=== PATIENT | male | born 1940 | race African-American/Black ===

== ENCOUNTER 2021-02-15 15:14 | Outpatient (CLI) | payer MEDICARE ==
[2021-02-15 19:37] LABS: SARS-CoV-2 PCR by NAA Not Detected (NotDetected)
== END 2021-02-15 15:15 | disposition home or self-care (01) ==
LOC: BRENFP 15:14
PROVIDERS: ATTEND Registered Nurse
DX: R52 Pain, unspecified (principal); Z20.822 Contact with and (suspected) exposure to COVID-19
CPT/HCPCS: U0003; U0005

== ENCOUNTER 2022-03-14 16:14 | Inpatient (IN) | payer MEDICARE ==
[2022-03-14 16:33] VITALS: BMI 31.8
[2022-03-14] MEDS ORDERED: Benzonatate 100 MG CAP PO PRN (19:30)
[2022-03-14] MEDS ORDERED: Albuterol 200 PUFF (6.7GM INHALER) INH PRN (19:30)
[2022-03-14] MEDS ORDERED: Acetaminophen 325 MG TAB PO PRN (19:30)
[2022-03-14] MEDS ORDERED: Acetaminophen 650 MG Suppository PR PRN (19:30)
[2022-03-14] MEDS ORDERED: Dextrose 50% Abboject 50 ML SYRINGE SLOW IVP PRN (19:58)
[2022-03-14] MEDS ORDERED: Dextrose 5% in Water 1,000 ML IV PRN (19:58)
[2022-03-14] MEDS ORDERED: HumaLOG 300 UNITS/3 ML VIAL SC PRN ×2 (19:58)
[2022-03-14] MEDS ORDERED: Furosemide 40 MG/4 ML VIAL SLOW IVP SCH (20:00)
[2022-03-14] MEDS ORDERED: hydrALAZINE 20 MG/ML VIAL SLOW IVP PRN (20:00)
[2022-03-14] MEDS ORDERED: Ondansetron PF 4 MG/2 ML Vial IVP PRN (20:24)
[2022-03-14] MEDS ORDERED: REMDESIVIR 200 MG in Sodium Chloride 0.9% 250 ML 210 ML IV SCH (21:00)
[2022-03-14] MEDS: Latanoprost 0.005% Ophth Soln 2.5 ml Bottle EA EYE SCH (21:21)
[2022-03-14] MEDS: DorzolamidE/Timolol 2%/0.5% Ophth Soln 10 ml Bottle EA EYE SCH (21:21)
[2022-03-14] MEDS: Atorvastatin Calcium 40 MG TAB PO SCH (21:21)
[2022-03-14] MEDS: Carvedilol 3.125 MG TAB PO SCH (21:21)
[2022-03-14] MEDS: Heparin 5,000 UNITS/ML VIAL SC SCH (21:22)
[2022-03-14 21:27] LABS: Troponin I 0.115 ng/mL (< 0.028)
[2022-03-15 00:32] LABS: Troponin I 0.126 ng/mL (< 0.028)
[2022-03-15 01:30] LABS: Magnesium 1.8 mg/dL (1.6-2.6)
[2022-03-15 04:47] LABS: Hemoglobin A1c 5.5 % (4.0-6.0)
[2022-03-15 04:56] LABS: PTT 35.9 sec (22.9-36.1)
[2022-03-15 04:57] LABS: D-Dimer Test 1.19 *mcg/mL (0.27-0.43); INR-International Normal Ratio 1.3; Prothrombin Time 15.9 sec (12.0-14.7)
[2022-03-15 05:02] LABS: ALT (SGPT) 32 U/L (8-55); AST (SGOT) 43 U/L (5-34); Alkaline Phosphatase 60 U/L (40-110); Bilirubin, Direct 0.4 mg/dL (0.1-0.3); Bilirubin, Total 1.2 mg/dL (0.2-1.2); CRP (Inflammatory) 1.49 mg/dL (= or < 0.5); Protein, Total 5.7 g/dL (5.8-8.1)
[2022-03-15 05:06] LABS: ALT (SGPT) 28 U/L (8-55); AST (SGOT) 44 U/L (5-34); Albumin 2.9 g/dL (3.4-4.8); Alkaline Phosphatase 57 U/L (40-110); Anion Gap 15 mmol/L (10-20); BUN (Urea Nitrogen) 19 mg/dL (8.4-25.7); Bilirubin, Total 1.1 mg/dL (0.2-1.2); Calc. Creatinine Clearance 63 mL/min (70-130); Calcium 8.3 mg/dL (7.8-10.44); Carbon Dioxide 23 mmol/L (23-31); Cardiac Risk 3.6 (Less than 4.5); Chloride 104 mmol/L (98-107); Cholesterol 114 mg/dl (< 200 Desired); Estimated GFR 62; Globulin 2.7 g/dL (2.4-3.5); Glucose 131 mg/dL (83-110); HDL Cholesterol 32 mg/dL (>60 Neg Risk); LDL Cholesterol, Calculated 76 mg/dL; Potassium 3.6 mmol/L (3.5-5.1); Protein, Total 5.6 g/dL (5.8-8.1); Sodium 138 mmol/L (136-145); Triglycerides 30 mg/dL (Less than 150)
[2022-03-15] MEDS: Furosemide 40 MG/4 ML VIAL SLOW IVP SCH ×2 (06:03→18:10)
[2022-03-15] MEDS ORDERED: Pioglitazone HCl 15 MG TAB PO SCH (09:00)
[2022-03-15] MEDS: Potassium Chloride 20 MEQ TAB PO SCH (09:19)
[2022-03-15] MEDS: Clopidogrel Bisulfate 75 MG TAB PO SCH (09:20)
[2022-03-15] MEDS: Zinc Sulfate 220 MG CAP PO SCH (09:20)
[2022-03-15] MEDS: Ascorbic Acid 500 mg Chewable Tablet PO SCH (09:20)
[2022-03-15] MEDS: Cholecalciferol (Vitamin D3) 400 UNITS TAB PO SCH (09:21)
[2022-03-15] MEDS: Dexamethasone 4 MG TAB PO SCH (09:21)
[2022-03-15] MEDS: Lisinopril 20 MG TAB PO SCH (09:21)
[2022-03-15] MEDS: Amlodipine 5 MG TAB PO SCH (09:22)
[2022-03-15] MEDS: Carvedilol 3.125 MG TAB PO SCH ×2 (09:22→21:15)
[2022-03-15] MEDS: Heparin 5,000 UNITS/ML VIAL SC SCH ×3 (09:23→21:16)
[2022-03-15] MEDS: DorzolamidE/Timolol 2%/0.5% Ophth Soln 10 ml Bottle EA EYE SCH ×2 (09:23→21:16)
[2022-03-15] MEDS: Atorvastatin Calcium 40 MG TAB PO SCH (21:15)
[2022-03-15] MEDS: REMDESIVIR 100 MG in Sodium Chloride 0.9% 250 ML 230 ML IV SCH (21:16)
[2022-03-15] MEDS: Latanoprost 0.005% Ophth Soln 2.5 ml Bottle EA EYE SCH (21:16)
[2022-03-16 04:56] LABS: #Lymphocytes 1.5 thou/uL (1.20-3.40); #Monocytes 0.9 thou/uL (0.11-0.59); #Neutrophils 6.1 thou/uL (1.40-6.50); %Basophils 0.2 % (0.0-1.0); %Lymphocytes 17.8 % (21.0-51.0); %Monocytes 10.5 % (0.0-10.0); %Neutrophils 71.5 % (42.0-75.0); Hemoglobin 13.2 g/dL (14.0-18.0); Mean Corpuscular HGB CONC 33.5 g/dL (32.0-36.0); Mean Corpuscular Hemoglobin 31.9 pg (27.0-31.0); Mean Corpuscular Volume 95.4 fL (78.0-98.0); Platelet Count 136 thou/uL (130-400); RBC Distribution Width 13.8 % (11.5-14.5); Red Blood Cell (RBC) Count 4.13 mill/uL (4.70-6.10); White Blood Cell (WBC) Count 8.6 thou/uL (4.8-10.8)
[2022-03-16 05:18] LABS: ALT (SGPT) 41 U/L (8-55); AST (SGOT) 56 U/L (5-34); Alkaline Phosphatase 62 U/L (40-110); Anion Gap 14 mmol/L (10-20); BUN (Urea Nitrogen) 24 mg/dL (8.4-25.7); Calc. Creatinine Clearance 57 mL/min (70-130); Calcium 8.5 mg/dL (7.8-10.44); Carbon Dioxide 26 mmol/L (23-31); Chloride 104 mmol/L (98-107); Estimated GFR 57; Globulin 2.8 g/dL (2.4-3.5); Glucose 123 mg/dL (83-110); Potassium 3.7 mmol/L (3.5-5.1); Protein, Total 5.8 g/dL (5.8-8.1); Sodium 140 mmol/L (136-145)
[2022-03-16] MEDS: Furosemide 40 MG/4 ML VIAL SLOW IVP SCH ×2 (05:47→14:06)
[2022-03-16] MEDS: Dexamethasone 4 MG TAB PO SCH (09:51)
[2022-03-16] MEDS: Cholecalciferol (Vitamin D3) 400 UNITS TAB PO SCH (09:53)
[2022-03-16] MEDS: Amlodipine 5 MG TAB PO SCH (09:53)
[2022-03-16] MEDS: Lisinopril 20 MG TAB PO SCH (09:53)
[2022-03-16] MEDS: Zinc Sulfate 220 MG CAP PO SCH (09:54)
[2022-03-16] MEDS: DorzolamidE/Timolol 2%/0.5% Ophth Soln 10 ml Bottle EA EYE SCH ×2 (09:54→21:05)
[2022-03-16] MEDS: Potassium Chloride 20 MEQ TAB PO SCH (09:54)
[2022-03-16] MEDS: Carvedilol 3.125 MG TAB PO SCH ×2 (09:54→21:05)
[2022-03-16] MEDS: Clopidogrel Bisulfate 75 MG TAB PO SCH (09:54)
[2022-03-16] MEDS: Ascorbic Acid 500 mg Chewable Tablet PO SCH (09:54)
[2022-03-16] MEDS: Heparin 5,000 UNITS/ML VIAL SC SCH ×3 (09:55→21:06)
[2022-03-16] MEDS: Atorvastatin Calcium 40 MG TAB PO SCH (21:05)
[2022-03-16] MEDS: Latanoprost 0.005% Ophth Soln 2.5 ml Bottle EA EYE SCH (21:06)
[2022-03-16] MEDS: REMDESIVIR 100 MG in Sodium Chloride 0.9% 250 ML 230 ML IV SCH (21:06)
[2022-03-17 03:32] VITALS: TEMP 97.5
[2022-03-17 04:22] LABS: #Lymphocytes 1.5 thou/uL (1.20-3.40); #Monocytes 0.8 thou/uL (0.11-0.59); #Neutrophils 5.9 thou/uL (1.40-6.50); %Eosinophils 0.1 % (0.0-10.0); %Lymphocytes 18.6 % (21.0-51.0); %Monocytes 9.8 % (0.0-10.0); %Neutrophils 71.5 % (42.0-75.0); Hemoglobin 13.7 g/dL (14.0-18.0); Mean Corpuscular HGB CONC 32.8 g/dL (32.0-36.0); Mean Corpuscular Hemoglobin 31.5 pg (27.0-31.0); Mean Corpuscular Volume 95.9 fL (78.0-98.0); Mean Platelet Volume 9.7 fL (7.4-10.4); Platelet Count 134 thou/uL (130-400); RBC Distribution Width 13.9 % (11.5-14.5); Red Blood Cell (RBC) Count 4.36 mill/uL (4.70-6.10); White Blood Cell (WBC) Count 8.2 thou/uL (4.8-10.8)
[2022-03-17 04:46] LABS: Anion Gap 15 mmol/L (10-20); BUN (Urea Nitrogen) 26 mg/dL (8.4-25.7); Calc. Creatinine Clearance 55 mL/min (70-130); Calcium 8.2 mg/dL (7.8-10.44); Carbon Dioxide 26 mmol/L (23-31); Chloride 103 mmol/L (98-107); Estimated GFR 57; Glucose 122 mg/dL (83-110); Potassium 3.6 mmol/L (3.5-5.1); Sodium 140 mmol/L (136-145)
[2022-03-17] MEDS: Furosemide 40 MG/4 ML VIAL SLOW IVP SCH (05:17)
[2022-03-17] MEDS ORDERED: Multivit, Therapeutic 1 TAB PO SCH (09:00)
[2022-03-17] MEDS: Clopidogrel Bisulfate 75 MG TAB PO SCH (09:05)
[2022-03-17] MEDS: Ascorbic Acid 500 mg Chewable Tablet PO SCH (09:05)
[2022-03-17] MEDS: DorzolamidE/Timolol 2%/0.5% Ophth Soln 10 ml Bottle EA EYE SCH (09:05)
[2022-03-17] MEDS: Dexamethasone 4 MG TAB PO SCH (09:05)
[2022-03-17] MEDS: Potassium Chloride 20 MEQ TAB PO SCH (09:06)
[2022-03-17] MEDS: Zinc Sulfate 220 MG CAP PO SCH (09:06)
[2022-03-17] MEDS: Amlodipine 5 MG TAB PO SCH (09:06)
[2022-03-17] MEDS: Heparin 5,000 UNITS/ML VIAL SC SCH (09:06)
[2022-03-17] MEDS: Cholecalciferol (Vitamin D3) 400 UNITS TAB PO SCH (09:06)
[2022-03-17] MEDS: Lisinopril 20 MG TAB PO SCH (09:06)
[2022-03-17] MEDS: Carvedilol 3.125 MG TAB PO SCH (09:07)
[2022-03-17 11:22] VITALS: BP 132/61
[2022-03-18] MEDS ORDERED: Furosemide 40 MG TAB PO SCH (07:30)
== END 2022-03-17 13:25 | disposition home or self-care (01) | DRG 177 ==
LOC: 2NO 16:14
PROVIDERS: ADMIT Internal Medicine; ATTEND Family Medicine
PROC: XW033E5 Introduction of Remdesivir Anti-infective into Peripheral Vein, Percutaneous Approach, New Technology Group 5 (ICD-10-PCS; principal; 2022-03-14)
PROC: 8E0ZXY6 Isolation (ICD-10-PCS; 2022-03-14)
PROC: 3E0DX3Z Introduction of Anti-inflammatory into Mouth and Pharynx, External Approach (ICD-10-PCS; 2022-03-15)
DX: U07.1 COVID-19 (principal); I21.A1 Myocardial infarction type 2; I50.33 Acute on chronic diastolic (congestive) heart failure; J12.82 Pneumonia due to coronavirus disease 2019; I13.0 Hypertensive heart and chronic kidney disease with heart failure and stage 1 through stage 4 chronic kidney disease, or unspecified chronic kidney disease; E78.5 Hyperlipidemia, unspecified; E11.22 Type 2 diabetes mellitus with diabetic chronic kidney disease; E11.51 Type 2 diabetes mellitus with diabetic peripheral angiopathy without gangrene; E11.59 Type 2 diabetes mellitus with other circulatory complications; N18.30 Chronic kidney disease, stage 3 unspecified; I35.0 Nonrheumatic aortic (valve) stenosis; Z79.899 Other long term (current) drug therapy; Z98.890 Other specified postprocedural states; Z86.73 Personal history of transient ischemic attack (TIA), and cerebral infarction without residual deficits; Z87.891 Personal history of nicotine dependence
CPT/HCPCS: 36415; 36416; 80048; 80053; 80061; 82728; 83036; 83615; 83735; 84145; 85025; 85379; 85610; 85730; 86140; 93005; 93010; 93306; J0248; J0360; J1644; J1815; J1940; J2405; J7050; J8540

== ENCOUNTER 2022-09-17 13:57 | Inpatient (IN) | payer MEDICARE ==
[2022-09-17 14:34] LABS: #Eosinphils 0.1 thou/uL (0.0-0.7); #Lymphocytes 1.4 thou/uL (1.20-3.40); #Neutrophils 12.9 thou/uL (1.40-6.50); %Basophils 0.1 % (0.0-1.0); %Eosinophils 0.4 % (0.0-10.0); %Lymphocytes 9.2 % (21.0-51.0); %Monocytes 6.2 % (0.0-10.0); %Neutrophils 84.1 % (42.0-75.0); Mean Corpuscular HGB CONC 31.6 g/dL (32.0-36.0); Mean Corpuscular Hemoglobin 27.1 pg (27.0-31.0); Mean Corpuscular Volume 85.6 fl (78.0-98.0); Mean Platelet Volume 9.3 fL (7.4-10.4); Platelet Count 207 10x3/uL (130-400); RBC Distribution Width 14.5 % (11.5-14.5); White Blood Cell (WBC) Count 15.3 10x3/uL (4.8-10.8)
[2022-09-17 14:57] LABS: ALT (SGPT) 43 U/L (8-55); AST (SGOT) 46 U/L (5-34); Albumin 3.6 g/dL (3.4-4.8); Alkaline Phosphatase 82 U/L (40-110); Anion Gap 13 mmol/L (10-20); BUN (Urea Nitrogen) 23 mg/dL (8.4-25.7); Calc. Creatinine Clearance 0 mL/min (70-130); Calcium 8.8 mg/dL (7.8-10.44); Carbon Dioxide 19 mmol/L (23-31); Chloride 112 mmol/L (98-107); Estimated GFR 54; Globulin 3.1 g/dL (2.4-3.5); Glucose 82 mg/dL (83-110); Potassium 4.3 mmol/L (3.5-5.1); Protein, Total 6.7 g/dL (5.8-8.1); Sodium 140 mmol/L (136-145)
[2022-09-17 15:19] LABS: CKMB 1.5 ng/mL (0-6.6)
[2022-09-17] MEDS ORDERED: cefTRIAXone\\ROCEPHIN 2 GM VIAL ONE (15:37)
[2022-09-17] MEDS ORDERED: Azithromycin 500 MG VIAL ONE (16:04)
[2022-09-17] MEDS ORDERED: Acetaminophen 325 MG TAB PO PRN (16:26)
[2022-09-17] MEDS ORDERED: Furosemide 40 MG/4 ML VIAL SLOW IVP SCH (16:30)
[2022-09-17 16:37] VITALS: BMI 32.8
[2022-09-17 16:37] LABS: SARS-CoV-2 NAA Rapid Test Not Detected (NotDetected)
[2022-09-17] MEDS ORDERED: Benzonatate 100 MG CAP PO PRN (17:21)
[2022-09-17 18:09] LABS: Phosphorus 2.6 mg/dL (2.3-4.7)
[2022-09-17 18:16] LABS: Troponin I 0.045 ng/mL (< 0.028)
[2022-09-17 18:31] LABS: Magnesium 1.9 mg/dL (1.6-2.6)
[2022-09-17] MEDS: Ezetimibe 10 MG TAB PO SCH (22:10)
[2022-09-17] MEDS: Atorvastatin Calcium 40 MG TAB PO SCH (22:10)
[2022-09-17] MEDS: DorzolamidE/Timolol 2%/0.5% Ophth Soln 10 ml Bottle EA EYE SCH (22:11)
[2022-09-17] MEDS: Latanoprost 0.005% Ophth Soln 2.5 ml Bottle EA EYE SCH (22:11)
[2022-09-18 06:44] LABS: #Eosinphils 0.1 thou/uL (0.0-0.7); #Lymphocytes 1.6 thou/uL (1.20-3.40); #Neutrophils 7.9 thou/uL (1.40-6.50); %Basophils 0.2 % (0.0-1.0); %Eosinophils 1.1 % (0.0-10.0); %Lymphocytes 14.6 % (21.0-51.0); %Monocytes 9.7 % (0.0-10.0); %Neutrophils 74.4 % (42.0-75.0); Hemoglobin 11.2 g/dL (14.0-18.0); Mean Corpuscular HGB CONC 32.1 g/dL (32.0-36.0); Mean Corpuscular Hemoglobin 27.3 pg (27.0-31.0); Mean Corpuscular Volume 85.3 fl (78.0-98.0); Mean Platelet Volume 9.5 fL (7.4-10.4); Platelet Count 177 10x3/uL (130-400); RBC Distribution Width 14.5 % (11.5-14.5); White Blood Cell (WBC) Count 10.6 10x3/uL (4.8-10.8)
[2022-09-18 07:04] LABS: Anion Gap 11 mmol/L (10-20); BUN (Urea Nitrogen) 25 mg/dL (8.4-25.7); Calc. Creatinine Clearance 60 mL/min (70-130); Calcium 8.4 mg/dL (7.8-10.44); Carbon Dioxide 20 mmol/L (23-31); Chloride 112 mmol/L (98-107); Estimated GFR 54; Glucose 77 mg/dL (83-110); Potassium 3.8 mmol/L (3.5-5.1); Sodium 139 mmol/L (136-145)
[2022-09-18] MEDS ORDERED: Furosemide 40 MG/4 ML VIAL SLOW IVP SCH (08:15)
[2022-09-18] MEDS ORDERED: Magnesium 2 GM/50 ML(in water) 2 GM in Premix Bag 1 BAG IVPB SCH (08:45)
[2022-09-18] MEDS ORDERED: Lisinopril 20 MG TAB PO SCH (09:00)
[2022-09-18] MEDS: Amlodipine 5 MG TAB PO SCH (10:46)
[2022-09-18] MEDS: Empagliflozin 10 MG TAB PO SCH (10:46)
[2022-09-18] MEDS: Potassium Chloride 20 MEQ TAB PO SCH (10:46)
[2022-09-18] MEDS: Aspirin 81 mg Enteric Coated Tablet PO SCH (10:47)
[2022-09-18] MEDS: Multivit, Therapeutic 1 TAB PO SCH (10:47)
[2022-09-18] MEDS: Clopidogrel Bisulfate 75 MG TAB PO SCH (10:47)
[2022-09-18] MEDS: DorzolamidE/Timolol 2%/0.5% Ophth Soln 10 ml Bottle EA EYE SCH ×2 (10:48→21:09)
[2022-09-18 11:36] VITALS: BP 145/60
[2022-09-18] MEDS ORDERED: cefTRIAXone\\ROCEPHIN 1 GM in Sodium Chloride 0.9% 100 ML IVPB SCH (15:00)
[2022-09-18] MEDS ORDERED: Azithromycin 500 MG in Sodium Chloride 0.9% 250 ML 250 ML IVPB SCH (16:00)
[2022-09-18] MEDS: Ezetimibe 10 MG TAB PO SCH (21:08)
[2022-09-18] MEDS: Atorvastatin Calcium 40 MG TAB PO SCH (21:08)
[2022-09-18] MEDS: Latanoprost 0.005% Ophth Soln 2.5 ml Bottle EA EYE SCH (21:09)
[2022-09-19 04:22] LABS: #Eosinphils 0.2 thou/uL (0.0-0.7); #Lymphocytes 1.5 thou/uL (1.20-3.40); #Monocytes 1.2 thou/uL (0.11-0.59); #Neutrophils 7.6 thou/uL (1.40-6.50); %Basophils 0.1 % (0.0-1.0); %Lymphocytes 14.3 % (21.0-51.0); %Monocytes 11.1 % (0.0-10.0); %Neutrophils 72.5 % (42.0-75.0); Mean Corpuscular HGB CONC 31.7 g/dL (32.0-36.0); Mean Corpuscular Hemoglobin 27.3 pg (27.0-31.0); Mean Corpuscular Volume 86.1 fl (78.0-98.0); Mean Platelet Volume 9.9 fL (7.4-10.4); Platelet Count 201 10x3/uL (130-400); RBC Distribution Width 14.7 % (11.5-14.5); Red Blood Cell (RBC) Count 4.76 mill/uL (4.70-6.10); White Blood Cell (WBC) Count 10.5 10x3/uL (4.8-10.8)
[2022-09-19 04:37] LABS: Anion Gap 14 mmol/L (10-20); BUN (Urea Nitrogen) 24 mg/dL (8.4-25.7); Calc. Creatinine Clearance 66 mL/min (70-130); Calcium 8.9 mg/dL (7.8-10.44); Carbon Dioxide 20 mmol/L (23-31); Chloride 110 mmol/L (98-107); Estimated GFR 61; Glucose 85 mg/dL (83-110); Potassium 3.8 mmol/L (3.5-5.1); Sodium 140 mmol/L (136-145)
[2022-09-19] MEDS ORDERED: Furosemide 40 MG TAB PO SCH (07:30)
[2022-09-19] MEDS ORDERED: Amoxicillin/Potassium Clav 875 MG TAB PO SCH ×2 (09:00→21:00)
[2022-09-19] MEDS: Aspirin 81 mg Enteric Coated Tablet PO SCH (10:06)
[2022-09-19] MEDS: Clopidogrel Bisulfate 75 MG TAB PO SCH (10:06)
[2022-09-19] MEDS: Empagliflozin 10 MG TAB PO SCH (10:06)
[2022-09-19] MEDS: Multivit, Therapeutic 1 TAB PO SCH (10:07)
[2022-09-19] MEDS: Potassium Chloride 20 MEQ TAB PO SCH (10:07)
[2022-09-19] MEDS: Amlodipine 5 MG TAB PO SCH (10:07)
[2022-09-19] MEDS: DorzolamidE/Timolol 2%/0.5% Ophth Soln 10 ml Bottle EA EYE SCH (10:07)
[2022-09-19 12:51] VITALS: TEMP 97.8
== END 2022-09-19 17:15 | disposition home or self-care (01) | DRG 871 ==
LOC: ERS 13:57 → IMCU/EMU 15:40
PROVIDERS: ADMIT Emergency Medicine; ATTEND Emergency Medicine
DX: A41.9 Sepsis, unspecified organism (principal); I50.33 Acute on chronic diastolic (congestive) heart failure; J96.01 Acute respiratory failure with hypoxia; J18.9 Pneumonia, unspecified organism; I69.951 Hemiplegia and hemiparesis following unspecified cerebrovascular disease affecting right dominant side; I13.0 Hypertensive heart and chronic kidney disease with heart failure and stage 1 through stage 4 chronic kidney disease, or unspecified chronic kidney disease; E11.51 Type 2 diabetes mellitus with diabetic peripheral angiopathy without gangrene; N18.31 Chronic kidney disease, stage 3a; E78.5 Hyperlipidemia, unspecified; I25.10 Atherosclerotic heart disease of native coronary artery without angina pectoris; E83.42 Hypomagnesemia; Z79.899 Other long term (current) drug therapy; Z79.82 Long term (current) use of aspirin; Z95.5 Presence of coronary angioplasty implant and graft
CPT/HCPCS: 36415; 36416; 71045; 80048; 80053; 82553; 83605; 83735; 83880; 84100; 84145; 84443; 84484; 85025; 87040; 87633; 93005; 94660; 96365; 96375; J0456; J0696; J1650; J1940; J3475; J3490; J7050; U0002

== ENCOUNTER 2022-11-18 19:30 | Outpatient (CLI) | payer MEDICARE | END 2022-11-18 19:31 | disposition home or self-care (01) | LOC: SLEEPLAB 19:30 | PROVIDERS: ATTEND Family Medicine | DX: G47.33 Obstructive sleep apnea (adult) (pediatric) (principal); E11.9 Type 2 diabetes mellitus without complications; I63.9 Cerebral infarction, unspecified; R94.31 Abnormal electrocardiogram [ECG] [EKG] | CPT/HCPCS: 95811 ==

== ENCOUNTER 2023-02-12 19:30 | Outpatient (CLI) | payer MEDICARE | END 2023-02-12 19:31 | disposition home or self-care (01) | LOC: SLEEPLAB 19:30 | PROVIDERS: ATTEND Family Medicine | DX: G47.33 Obstructive sleep apnea (adult) (pediatric) (principal); E11.9 Type 2 diabetes mellitus without complications; I63.9 Cerebral infarction, unspecified; R06.83 Snoring; G47.10 Hypersomnia, unspecified; E66.9 Obesity, unspecified; G47.31 Primary central sleep apnea; I49.3 Ventricular premature depolarization; Z68.30 Body mass index [BMI] 30.0-30.9, adult | CPT/HCPCS: 95811 ==

== ENCOUNTER 2024-06-09 09:56 | Inpatient (IN) | payer MEDICARE ==
[2024-06-09 10:55] LABS: #Basophils Less than 0.03 10x3/uL (0.0-0.2); #Eosinophils Less than 0.03 10x3/uL (0.0-0.7); %Basophils 0.1 % (0.0-1.0); %Lymphocytes 7.2 % (21.0-51.0); %Monocytes 4.8 % (0.0-10.0); %Neutrophils 87.4 % (42.0-75.0); Hematocrit 43.1 % (42.0-52.0); Hemoglobin 14.2 g/dL (14.0-18.0); Mean Corpuscular HGB CONC 32.9 g/dL (32.0-36.0); Mean Corpuscular Hemoglobin 27.4 pg (27.0-31.0); Mean Corpuscular Volume 83.2 fL (78.0-98.0); Mean Platelet Volume 11.4 fL (7.4-10.4); Platelet Count 200 10x3/uL (130-400); RBC Distribution Width 17.9 % (11.5-14.5); Red Blood Cell (RBC) Count 5.18 mill/uL (4.70-6.10)
[2024-06-09 11:09] LABS: ALT (SGPT) 93 U/L (8-55); AST (SGOT) 116 U/L (5-34); Albumin 3.6 g/dL (3.4-4.8); Alkaline Phosphatase 112 U/L (40-110); Anion Gap 16 mmol/L (10-20); BUN (Urea Nitrogen) 28 mg/dL (8.4-25.7); Calc. Creatinine Clearance 0 mL/min (70-130); Carbon Dioxide 21 mmol/L (23-31); Chloride 109 mmol/L (98-107); Estimated GFR 45; Globulin 4.2 g/dL (2.4-3.5); Glucose 153 mg/dL (83-110); Potassium 4.5 mmol/L (3.5-5.1); Protein, Total 7.8 g/dL (5.8-8.1); Sodium 141 mmol/L (136-145)
[2024-06-09 11:13] LABS: Troponin I 0.134 ng/mL (< 0.028)
[2024-06-09] MEDS ORDERED: LevoFLOXacin 750 mg/D5W 150 ml Premix Bag ONE (11:15)
[2024-06-09] MEDS ORDERED: Cefepime 2 GM VIAL ONE (11:15)
[2024-06-09] MEDS ORDERED: Sodium Chloride 0.9% 100 ML ONE (11:15)
[2024-06-09] MEDS ORDERED: Aspirin Chewable 81 MG TAB ONE (11:39)
[2024-06-09] MEDS ORDERED: Furosemide 40 MG (4 mL) VIAL ONE (11:42)
[2024-06-09] MEDS ORDERED: Ondansetron ODT 4 MG TAB PO PRN (12:25)
[2024-06-09] MEDS ORDERED: Ondansetron PF 4 MG/2 ML Vial IVP PRN (12:25)
[2024-06-09] MEDS ORDERED: Acetaminophen 325 MG TAB PO PRN (12:25)
[2024-06-09] MEDS ORDERED: Acetaminophen 650 MG Suppository PR PRN (12:25)
[2024-06-09] MEDS ORDERED: Dextrose 50% Abboject 50 ML SYRINGE SLOW IVP PRN (12:27)
[2024-06-09] MEDS ORDERED: Dextrose 5% in Water 1,000 ML IV PRN (12:27)
[2024-06-09] MEDS ORDERED: Glucagon 1 MG/ML KIT IM PRN (12:27)
[2024-06-09] MEDS ORDERED: Insulin Lispro 100 UNIT/ML 10 ML VIAL SC PRN (12:27)
[2024-06-09 14:07] VITALS: BMI 29.6
[2024-06-09] MEDS: Furosemide 100 MG (10 mL) VIAL SLOW IVP SCH (14:34)
[2024-06-09 15:54] LABS: Troponin I 0.141 ng/mL (< 0.028)
[2024-06-09] MEDS: Vancomycin (BATCH) 2 GM in Premix 1 BAG IVPB SCH (18:30)
[2024-06-09] MEDS: hydrALAZINE 25 MG TAB PO SCH (18:40)
[2024-06-09 20:11] LABS: Troponin I 0.159 ng/mL (< 0.028)
[2024-06-09] MEDS: Atorvastatin Calcium 40 MG TAB PO SCH (21:30)
[2024-06-09] MEDS: DorzolamidE/Timolol 2%/0.5% Ophth Soln 10 ml Bottle EA EYE SCH (21:33)
[2024-06-09] MEDS: Guaifenesin DM 100-10/5 ML UDCUP PO PRN (22:25)
[2024-06-10 07:10] LABS: #Basophils Less than 0.03 10x3/uL (0.0-0.2); #Eosinophils Less than 0.03 10x3/uL (0.0-0.7); %Basophils 0.1 % (0.0-1.0); %Eosinophils 0.2 % (0.0-10.0); %Lymphocytes 10.9 % (21.0-51.0); %Monocytes 10.2 % (0.0-10.0); %Neutrophils 78.1 % (42.0-75.0); Hematocrit 41.5 % (42.0-52.0); Hemoglobin 13.5 g/dL (14.0-18.0); Mean Corpuscular HGB CONC 32.5 g/dL (32.0-36.0); Mean Corpuscular Hemoglobin 27.2 pg (27.0-31.0); Mean Corpuscular Volume 83.5 fL (78.0-98.0); Platelet Count 180 10x3/uL (130-400); RBC Distribution Width 17.5 % (11.5-14.5); Red Blood Cell (RBC) Count 4.97 mill/uL (4.70-6.10)
[2024-06-10 07:37] LABS: Anion Gap 13 mmol/L (10-20); BUN (Urea Nitrogen) 25 mg/dL (8.4-25.7); Calc. Creatinine Clearance 57 mL/min (70-130); Calcium 8.6 mg/dL (7.8-10.44); Carbon Dioxide 23 mmol/L (23-31); Chloride 109 mmol/L (98-107); Estimated GFR 62; Glucose 94 mg/dL (83-110); Potassium 3.5 mmol/L (3.5-5.1); Sodium 141 mmol/L (136-145)
[2024-06-10] MEDS: Aspirin 81 mg Enteric Coated Tablet PO SCH (09:39)
[2024-06-10] MEDS: Isosorbide Mononitrate 30 MG ER.TAB PO SCH (09:39)
[2024-06-10] MEDS: Enoxaparin 40 MG (0.4 mL) SYRINGE SC SCH (09:40)
[2024-06-10] MEDS: Clopidogrel Bisulfate 75 MG TAB PO SCH (09:40)
[2024-06-10] MEDS: Potassium Chloride 20 MEQ TAB PO SCH (09:47)
[2024-06-10] MEDS: Famotidine 20 MG TAB PO SCH (15:23)
[2024-06-10 16:47] VITALS: BMI 28.6
[2024-06-10 17:37] LABS: Anion Gap 14 mmol/L (10-20); Carbon Dioxide 28 mmol/L (23-31); Chloride 104 mmol/L (98-107); Potassium 3.8 mmol/L (3.5-5.1); Sodium 142 mmol/L (136-145)
[2024-06-10] MEDS ORDERED: Benzonatate 100 MG CAP PO PRN (21:54)
[2024-06-11 07:16] LABS: #Basophils Less than 0.03 10x3/uL (0.0-0.2); %Basophils 0.2 % (0.0-1.0); %Eosinophils 1.5 % (0.0-10.0); %Lymphocytes 16.7 % (21.0-51.0); %Monocytes 10.8 % (0.0-10.0); %Neutrophils 70.2 % (42.0-75.0); Hematocrit 42.7 % (42.0-52.0); Hemoglobin 14.4 g/dL (14.0-18.0); Mean Corpuscular HGB CONC 33.7 g/dL (32.0-36.0); Mean Corpuscular Hemoglobin 27.4 pg (27.0-31.0); Mean Corpuscular Volume 81.3 fL (78.0-98.0); Mean Platelet Volume 11.1 fL (7.4-10.4); Platelet Count 179 10x3/uL (130-400); RBC Distribution Width 17.3 % (11.5-14.5); Red Blood Cell (RBC) Count 5.25 mill/uL (4.70-6.10)
[2024-06-11 07:34] LABS: Anion Gap 12 mmol/L (10-20); BUN (Urea Nitrogen) 28 mg/dL (8.4-25.7); Calc. Creatinine Clearance 49 mL/min (70-130); Calcium 8.6 mg/dL (7.8-10.44); Carbon Dioxide 27 mmol/L (23-31); Chloride 104 mmol/L (98-107); Estimated GFR 55; Glucose 97 mg/dL (83-110); Potassium 3.3 mmol/L (3.5-5.1); Sodium 140 mmol/L (136-145)
[2024-06-11 08:04] VITALS: BP 136/63; TEMP 97.7
[2024-06-11] MEDS: Potassium Chloride 20 MEQ TAB PO SCH (09:06)
[2024-06-11] MEDS: guaiFENesin/DM ER PO SCH (09:08)
== END 2024-06-11 11:48 | disposition home or self-care (01) | DRG 280 ==
LOC: ERS 09:56 → SUATTDRO 09:56 → ERHOLD 12:28 → OBS 18:18 → OBSVTOIN 06-11 09:39
PROVIDERS: ADMIT Family Medicine; ATTEND Internal Medicine
DX: I11.0 Hypertensive heart disease with heart failure (principal); I50.33 Acute on chronic diastolic (congestive) heart failure; I21.A1 Myocardial infarction type 2; N17.9 Acute kidney failure, unspecified; I69.351 Hemiplegia and hemiparesis following cerebral infarction affecting right dominant side; E11.9 Type 2 diabetes mellitus without complications; E87.6 Hypokalemia; E78.5 Hyperlipidemia, unspecified; Z95.2 Presence of prosthetic heart valve; Z79.899 Other long term (current) drug therapy; Z79.02 Long term (current) use of antithrombotics/antiplatelets; Z79.82 Long term (current) use of aspirin
CPT/HCPCS: 36415; 36416; 71046; 71260; 80048; 80053; 83605; 83880; 84145; 84484; 85025; 87040; 93005; 96365; 96366; 96367; 96372; 96375; 96376; G0378; J0692; J1650; J1940; J1956; J3370

== ENCOUNTER 2024-08-06 13:07 | Inpatient (IN) | payer MEDICARE ==
[2024-08-06 13:35] LABS: Bacteria/HPF None Seen HPF (None Seen); Bilirubin Negative (Negative); Blood, Urine Negative (Negative); CAUTI Indications for Culture Acute Hematuria; Clarity Clear (Clear); Glucose, Urine (Dipstick) 500 mg/dL (Negative); Ketone, Urine Negative (Negative); Leukocyte Negative Leu/uL (Negative); Nitrite Negative (Negative); Protein, Urine (Dipstick) Negative (Neg-Trace); RBC/HPF 0-3 HPF (0-3); Specific Gravity, Urine 1.007 (1.002-1.036); Squamous Epithelial None Seen HPF (0-3); Urobilinogen Normal mg/dL (Less than 2); WBC/HPF 0-3 HPF (0-3); pH, Urine 6.5 (5.0-9.0)
[2024-08-06 13:36] LABS: Urine Culture Reflex No No
[2024-08-06 15:03] LABS: #Basophils Less than 0.03 10x3/uL (0.0-0.2); %Basophils 0.2 % (0.0-1.0); %Eosinophils 1.7 % (0.0-10.0); %Lymphocytes 14.9 % (21.0-51.0); %Monocytes 9.8 % (0.0-10.0); Hematocrit 33.2 % (42.0-52.0); Hemoglobin 10.2 g/dL (14.0-18.0); Mean Corpuscular HGB CONC 30.7 g/dL (32.0-36.0); Mean Corpuscular Hemoglobin 27.1 pg (27.0-31.0); Mean Corpuscular Volume 88.3 fL (78.0-98.0); Mean Platelet Volume 11.4 fL (7.4-10.4); Platelet Count 133 10x3/uL (130-400); RBC Distribution Width 17.5 % (11.5-14.5); Red Blood Cell (RBC) Count 3.76 mill/uL (4.70-6.10)
[2024-08-06 15:10] LABS: ALT (SGPT) 47 U/L (Less than 45); AST (SGOT) 83 U/L (11-34); Albumin 3.5 g/dL (3.1-4.5); Alkaline Phosphatase 86 U/L (40-110); Anion Gap 13 mmol/L (10-20); BUN (Urea Nitrogen) 24 mg/dL (8.4-25.7); Bilirubin, Total 1.8 mg/dL (0.3-1.2); Calc. Creatinine Clearance 0 mL/min (70-130); Calcium 8.8 mg/dL (7.8-10.44); Carbon Dioxide 19 mmol/L (23-31); Chloride 111 mmol/L (98-107); Estimated GFR 50; Globulin 3.9 g/dL (2.4-3.5); Glucose 155 mg/dL (83-110); Potassium 4.5 mmol/L (3.5-5.1); Protein, Total 7.4 g/dL (5.8-8.1); Sodium 138 mmol/L (136-145)
[2024-08-06 15:16] LABS: Troponin I 0.126 ng/mL (< 0.028)
[2024-08-06] MEDS ORDERED: Furosemide 100 MG (10 mL) VIAL ONE (15:31)
[2024-08-06] MEDS ORDERED: Glucagon 1 MG/ML KIT IM PRN (20:49)
[2024-08-06] MEDS ORDERED: Dextrose 5% in Water 1,000 ML IV PRN (20:49)
[2024-08-06] MEDS ORDERED: Ondansetron ODT 4 MG TAB PO PRN (20:49)
[2024-08-06] MEDS ORDERED: Acetaminophen 325 MG TAB PO PRN (20:49)
[2024-08-06] MEDS ORDERED: Ondansetron PF 4 MG/2 ML Vial IVP PRN (20:49)
[2024-08-06] MEDS ORDERED: Insulin Lispro 100 UNIT/ML 10 ML VIAL SC PRN ×2 (20:49)
[2024-08-06] MEDS ORDERED: Dextrose 50% Abboject 50 ML SYRINGE SLOW IVP PRN (20:49)
[2024-08-06] MEDS ORDERED: Atorvastatin Calcium 40 MG TAB ONE (23:51)
[2024-08-06] MEDS ORDERED: Heparin 5,000 UNITS/ML VIAL ONE (23:51)
[2024-08-07] MEDS: Heparin 5,000 UNITS/ML VIAL SC SCH (00:12)
[2024-08-07] MEDS: Atorvastatin Calcium 40 MG TAB PO SCH ×2 (00:13→20:13)
[2024-08-07] MEDS: Latanoprost 0.005% Ophth Soln 2.5 ml Bottle EA EYE SCH ×2 (00:13→20:13)
[2024-08-07] MEDS: Ezetimibe 10 MG TAB PO SCH ×2 (00:13→20:12)
[2024-08-07] MEDS: DorzolamidE/Timolol 2%/0.5% Ophth Soln 10 ml Bottle EA EYE SCH (00:23)
[2024-08-07] MEDS ORDERED: Furosemide 40 MG (4 mL) VIAL ONE (05:18)
[2024-08-07] MEDS ORDERED: Furosemide 40 MG (4 mL) VIAL SLOW IVP SCH (06:00)
[2024-08-07 06:55] LABS: Anion Gap 14 mmol/L (10-20); BUN (Urea Nitrogen) 20 mg/dL (8.4-25.7); Calc. Creatinine Clearance 53 mL/min (70-130); Calcium 8.9 mg/dL (7.8-10.44); Carbon Dioxide 20 mmol/L (23-31); Chloride 111 mmol/L (98-107); Estimated GFR 54; Glucose 90 mg/dL (83-110); Potassium 3.8 mmol/L (3.5-5.1); Sodium 141 mmol/L (136-145)
[2024-08-07] MEDS ORDERED: hydrALAZINE 20 MG/ML VIAL SLOW IVP PRN (08:07)
[2024-08-07] MEDS ORDERED: Electrolyte Replacement Protocol FS PRN (08:45)
[2024-08-07] MEDS ORDERED: DorzolamidE/Timolol 2%/0.5% Ophth Soln 10 ml Bottle EA EYE SCH (09:00)
[2024-08-07] MEDS: Empagliflozin 10 MG TAB PO SCH (09:31)
[2024-08-07] MEDS: Furosemide 40 MG (4 mL) VIAL SLOW IVP SCH (09:31)
[2024-08-07] MEDS: Clopidogrel Bisulfate 75 MG TAB PO SCH (09:31)
[2024-08-07] MEDS: Aspirin 81 mg Enteric Coated Tablet PO SCH (09:31)
[2024-08-07] MEDS: hydrALAZINE 25 MG TAB PO SCH (09:32)
[2024-08-07] MEDS: Isosorbide Mononitrate 30 MG ER.TAB PO SCH (09:32)
[2024-08-07] MEDS: DorzolamidE/Timolol 2%/0.5% Ophth Soln 10 ml Bottle R EYE SCH (09:34)
[2024-08-07 12:00] VITALS: BMI 28.7
[2024-08-07 14:45] LABS: #Basophils Less than 0.03 10x3/uL (0.0-0.2); %Basophils 0.1 % (0.0-1.0); %Eosinophils 1.4 % (0.0-10.0); %Lymphocytes 13.4 % (21.0-51.0); %Monocytes 11.6 % (0.0-10.0); %Neutrophils 73.1 % (42.0-75.0); Hematocrit 40.7 % (42.0-52.0); Hemoglobin 13.1 g/dL (14.0-18.0); Mean Corpuscular HGB CONC 32.2 g/dL (32.0-36.0); Mean Corpuscular Hemoglobin 27.1 pg (27.0-31.0); Mean Corpuscular Volume 84.3 fL (78.0-98.0); Platelet Count 162 10x3/uL (130-400); RBC Distribution Width 17.4 % (11.5-14.5); Red Blood Cell (RBC) Count 4.83 mill/uL (4.70-6.10)
[2024-08-08] MEDS: Electrolyte Replacement Protocol 1 EACH FS ONE (01:07)
[2024-08-08 05:00] LABS: #Basophils Less than 0.03 10x3/uL (0.0-0.2); %Basophils 0.3 % (0.0-1.0); %Eosinophils 1.4 % (0.0-10.0); %Lymphocytes 13.4 % (21.0-51.0); %Monocytes 10.7 % (0.0-10.0); %Neutrophils 73.9 % (42.0-75.0); Hematocrit 39.2 % (42.0-52.0); Hemoglobin 12.7 g/dL (14.0-18.0); Mean Corpuscular HGB CONC 32.4 g/dL (32.0-36.0); Mean Corpuscular Volume 83.2 fL (78.0-98.0); Mean Platelet Volume 11.1 fL (7.4-10.4); Platelet Count 143 10x3/uL (130-400); RBC Distribution Width 17.6 % (11.5-14.5); Red Blood Cell (RBC) Count 4.71 mill/uL (4.70-6.10)
[2024-08-08] MEDS: Furosemide 40 MG (4 mL) VIAL SLOW IVP SCH (05:11)
[2024-08-08 05:45] LABS: Anion Gap 14 mmol/L (10-20); BUN (Urea Nitrogen) 19 mg/dL (8.4-25.7); Calc. Creatinine Clearance 53 mL/min (70-130); Calcium 8.6 mg/dL (7.8-10.44); Carbon Dioxide 22 mmol/L (23-31); Chloride 110 mmol/L (98-107); Estimated GFR 57; Glucose 80 mg/dL (83-110); Potassium 3.6 mmol/L (3.5-5.1); Sodium 142 mmol/L (136-145)
[2024-08-08] MEDS: hydrALAZINE 25 MG TAB PO SCH (14:50)
[2024-08-09 05:36] LABS: #Basophils Less than 0.03 10x3/uL (0.0-0.2); %Basophils 0.1 % (0.0-1.0); %Eosinophils 1.3 % (0.0-10.0); %Lymphocytes 10.8 % (21.0-51.0); %Monocytes 10.8 % (0.0-10.0); %Neutrophils 76.6 % (42.0-75.0); Hematocrit 41.6 % (42.0-52.0); Hemoglobin 13.3 g/dL (14.0-18.0); Mean Corpuscular Volume 84.4 fL (78.0-98.0); Mean Platelet Volume 10.8 fL (7.4-10.4); Platelet Count 157 10x3/uL (130-400); RBC Distribution Width 17.1 % (11.5-14.5); Red Blood Cell (RBC) Count 4.93 mill/uL (4.70-6.10)
[2024-08-09 05:51] LABS: Calcium 8.8 mg/dL (7.8-10.44); Chloride 110 mmol/L (98-107); Potassium 3.6 mmol/L (3.5-5.1); Sodium 142 mmol/L (136-145)
[2024-08-09 05:52] LABS: Glucose 91 mg/dL (83-110)
[2024-08-09 05:54] LABS: Anion Gap 15 mmol/L (10-20); Carbon Dioxide 21 mmol/L (23-31)
[2024-08-09 05:56] LABS: BUN (Urea Nitrogen) 19 mg/dL (8.4-25.7); Calc. Creatinine Clearance 63 mL/min (70-130); Estimated GFR 70
[2024-08-09] MEDS: Losartan 25 MG TAB PO SCH (12:33)
[2024-08-09] MEDS: Furosemide 40 MG TAB PO SCH (15:24)
[2024-08-10 04:36] LABS: Anion Gap 16 mmol/L (10-20); BUN (Urea Nitrogen) 17 mg/dL (8.4-25.7); Calc. Creatinine Clearance 59 mL/min (70-130); Calcium 8.7 mg/dL (7.8-10.44); Carbon Dioxide 22 mmol/L (23-31); Chloride 107 mmol/L (98-107); Estimated GFR 68; Glucose 78 mg/dL (83-110); Potassium 3.1 mmol/L (3.5-5.1); Sodium 142 mmol/L (136-145)
[2024-08-10] MEDS: Potassium Chloride 20 MEQ TAB PO SCH ×2 (09:44→11:06)
[2024-08-10] MEDS: Losartan 25 MG TAB PO SCH (09:44)
[2024-08-10] MEDS: Furosemide 40 MG TAB PO SCH (09:44)
[2024-08-10] MEDS ORDERED: Potassium Chloride 20 MEQ TAB PO SCH (10:00)
[2024-08-10 11:40] VITALS: TEMP 98.2
[2024-08-10 16:09] VITALS: BP 148/88
[2024-08-11] MEDS ORDERED: Furosemide 40 MG TAB PO SCH (09:00)
== END 2024-08-10 17:20 | disposition home or self-care (01) | DRG 280 ==
LOC: ERS 13:07 → ERHOLD 17:33 → 2NO 08-07 06:55 → OBSVTOIN 08-07 09:27
PROVIDERS: ADMIT Internal Medicine; ATTEND Internal Medicine
DX: I11.0 Hypertensive heart disease with heart failure (principal); I50.33 Acute on chronic diastolic (congestive) heart failure; I21.A1 Myocardial infarction type 2; J96.01 Acute respiratory failure with hypoxia; N17.9 Acute kidney failure, unspecified; I69.351 Hemiplegia and hemiparesis following cerebral infarction affecting right dominant side; E78.5 Hyperlipidemia, unspecified; E11.9 Type 2 diabetes mellitus without complications; Z79.82 Long term (current) use of aspirin; Z79.899 Other long term (current) drug therapy
CPT/HCPCS: 36415; 36416; 71045; 80048; 80053; 81001; 83880; 84145; 84484; 85025; 93005; 96374; 97139; J1644; J1940